=== PATIENT | female | born 1955 | race Caucasian/White ===

== ENCOUNTER → 2017-01-17 | Outpatient (CLI) | payer OTHER | LOC: CIMAGING 10:16 | PROVIDERS: ATTEND Obstetrics & Gynecology Gynecology | DX: N95.0 Postmenopausal bleeding (principal) | CPT/HCPCS: 76856-PO ==

== ENCOUNTER 2017-03-16 06:32 | Day surgery (SDC) | payer OTHER ==
[2017-03-16 06:58] VITALS: PULSE 76
[2017-03-16] MEDS ORDERED: LR 1,000 ML IV ONE ×2 (07:04→07:07)
[2017-03-16] MEDS ORDERED: MIDAZOLAM 2 MG/2 ML VIAL IVP ONE (07:43)
[2017-03-16] MEDS ORDERED: SCOPOLAMINE HYDROBROMIDE 1 MG/3 DAYS PATCH TD SCH (07:45)
[2017-03-16] MEDS ORDERED: fentaNYL 100 MCG/2 ML INJ IVP PRN (07:46)
[2017-03-16] MEDS ORDERED: MEPERIDINE 25 MG/ML SYR IVP PRN (07:46)
[2017-03-16] MEDS ORDERED: OXYCODONE/APAP 5/325 TAB PO PRN (07:46)
[2017-03-16] MEDS ORDERED: ACETAMINOPHEN 500 MG TAB PO PRN (07:46)
[2017-03-16] MEDS ORDERED: NALOXONE HCL 0.4 MG/ML INJ IVP PRN (07:46)
[2017-03-16] MEDS ORDERED: LR 500 ML IV PRN (07:46)
[2017-03-16] MEDS ORDERED: PROMETHAZINE HCL 25 MG/ML INJ IVP PRN (07:46)
[2017-03-16] MEDS ORDERED: ONDANSETRON 4 MG/2 ML VIAL IVP PRN (07:46)
[2017-03-16] MEDS ORDERED: HYDROCODONE/APAP 5/325 TAB PO PRN (07:46)
--- NOTE | 2017-03-16 07:46 | PDANEPAE ---
ANE Past Medical History - Cardiovascular History Hx Hypertension: No Hx Arrhythmias: No Hx Chest Pain: No Hx Coronary Artery / Peripheral Vascular Disease: No Hx CHF / Valvular Disease: No Hx Palpitations: No Cardiovascular History Comment: CHILDHOOD -MURMUR - Pulmonary History Hx COPD: No Hx Asthma/Reactive Airway Disease: No Hx Recent Upper Respiratory Infection: No Hx Oxygen in Use at Home: No Hx Sleep Apnea: Yes Sleep Apnea Screening Result - Last Documented: Positive - Neurologic History Hx Cerebrovascular Accident: No Hx Seizures: No Hx Dementia: No - Endocrine History Hx Diabetes: No Hypothyroid: No Hyperthyroid: No Obesity: no - Renal History Hx Renal Disorders: No - Liver History Hx Hepatic Disorders: No - Neurological & Psychiatric Hx Hx Neurological and Psychiatric Disorders: Yes Neurological / Psychiatric History Comment: ANXIETY - Cancer History Hx Cancer: No - Congenital Disorder History Hx Congenital Disorders: No - GI History GERD: mild Hx Gastrointestinal Disorders: Yes Gastrointestinal History Comment: ACID REFLUX - Other Health History Other Health History: NEG - Chronic Pain History Chronic Pain: No - Surgical History Prior Surgeries: MENISCISECTOMY MARINA. THUMB R. CYST LUMBAR ANE Review of Systems Review of Systems: - Exercise capacity METS (RN): 5 METS ANE Patient History - Allergies Allergies/Adverse Reactions: adhesive tape Allergy (Verified 03/02/17 14:08) Rash - Home Medications Home Medications: Aspirin 03/02/17 [Last Taken 03/09/17] Estrogens, Conjugated 03/02/17 [Last Taken 03/15/17] FLUoxetine 03/02/17 [Last Taken 03/15/17] Herbals/Supplements -Info Only 03/02/17 [Last Taken 03/09/17] Prevacid 03/02/17 [Last Taken 03/13/17] Progesterone 03/02/17 [Last Taken 03/15/17] Testosterone 03/02/17 [Last Taken 03/15/17] - NPO status NPO Since - Liquids (Date): 03/15/17 NPO Since - Liquids (Time): 22:00 NPO Since - Solids (Date): 03/15/17 NPO Since - Solids (Time): 18:00 - Anes Hx Anes Hx: post operative nausea - Smoking Hx Smoking Status: Current some day smoker - Alcohol Use Alcohol Use: Occasionally - Family Anes Hx Family Anes Hx: neg - N/A Family Hx Anesthesia Complications: NEG ANE Labs/Vital Signs - Vital Signs Blood Pressure: 142/92 Heart Rate: 76 Respiratory Rate: 16 O2 Sat (%): 94 Height: 164.47 cm Weight: 72.575 kg ANE Physical Exam - Airway Neck exam: FROM Mallampati Score: Class 2 Mouth exam: normal dental/mouth exam - Pulmonary Pulmonary: no respiratory distress, no rales or rhonchi, clear to auscultation - Cardiovascular Cardiovascular: regular rate and rhythym, no murmur, rub, or gallop - ASA Status ASA Status: II ANE Anesthesia Plan Anesthesia Plan: GA w LMA Total IV Anesthesia: No
[2017-03-16] MEDS ORDERED: fentaNYL 100 MCG/2 ML INJ ONE (08:09)
[2017-03-16] MEDS ORDERED: DEXAMETHASONE 4 MG/ML VIAL ONE (08:10)
[2017-03-16] MEDS ORDERED: LIDOCAINE 2% 5 ML SDV ONE (08:10)
[2017-03-16] MEDS ORDERED: PROPOFOL 200 MG/20 ML VIAL ONE (08:10)
[2017-03-16] MEDS ORDERED: ONDANSETRON 4 MG/2 ML VIAL ONE (08:10)
[2017-03-16] MEDS ORDERED: KETOROLAC 30 MG/1 ML SDV ONE (08:11)
[2017-03-16] MEDS ORDERED: RANITIDINE 50 MG/2 ML VIAL ONE (08:13)
--- NOTE | 2017-03-16 08:19 | PDHPUP ---
History & Physical Update H&P update statement: This history and physical update is based on an assessment of the patient which was completed after admission or registration (within 24 hours), but prior to the surgery/procedure.
--- NOTE | 2017-03-16 09:27 | POSTOPPROG ---
Post Op Note Date of Operation: 03/16/17 Surgeon: Shanti Jacob Anesthesiologist: Angelita Boone Anesthesia: LMA Pre-op Diagnosis: PMB, endometrial polyps Post-op Diagnosis: same Indication: PMB Procedure: H/S polypectomy Findings: cervical and endometrial polyps Inf/Abcess present in the surg proc area at time of surgery?: No EBL: Minimal
[2017-03-16 09:45] VITALS: TEMP 97.5
--- NOTE | 2017-03-16 09:58 | POSTANESTH ---
Post Anesthetic Evaluation Cardiovascular Status: Normal, Stable Respiratory Status: Normal, Stable Level of Consciousness/Mental Status: Can Participate in Eval Pain Control: Adequate, Prn Tx Ordered Nausea/Vomiting Control: Adequate, Prn Tx Ordered Complications Possibly Related to Anesthesia: None Noted
[2017-03-16 10:27] VITALS: BP 126/84; RESP 14; O2SAT 95
--- NOTE | 2017-03-16 12:01 | GOP ---
[f rep st] OPERATIVE REPORT DATE OF OPERATION: 03/16/2017 SURGEON: Shanti Jacob MD ANESTHESIA: General with LMA. ANESTHESIOLOGIST: Jewel Boone PREOPERATIVE DIAGNOSIS: 1. Postmenopausal bleeding. 2. Uterine and cervical polyps. POSTOPERATIVE DIAGNOSIS: 1. Postmenopausal bleeding. 2. Uterine and cervical polyps. PROCEDURE PERFORMED: Hysteroscopic polypectomy of the uterus and cervix. FINDINGS: There were several small polyp-looking areas inside the endometrium with normal tubal osti a and then there was a polyp-like fragment in the endocervix, but there was no true 1 cm polyp in the cervix. ESTIMATED BLOOD LOSS: Minimal. INDICATIONS: Patient is a 61-year-old who was referred by Dr. Do Hoskins, who has her on hormone replacement therapy and patient has had off and on bleeding over the past few years. Ultrasound done recently showed a thickened endometrial lining of 6 mm and a moderate-sized cervical polyp, and dominic ent desires hysteroscopic removal and evaluation. DESCRIPTION OF PROCEDURE: With informed consent signed, patient taken to operating room, placed unde r a general anesthesia without complication. Placed in low dorsal lithotomy position, and prepped an d draped in the usual sterile fashion. Cervix was dilated to 6 mm and hysteroscope placed using norm al saline as the filling medium. Findings as noted above. [employer] hysteroscopic m orcellator placed into the hysteroscope and resection of all tissue done, and this included like a pa rtial D and C. Once it was felt that all the polyp-like tissue was removed, the hysteroscope removed . Net fluid deficit was 40 cc and hemostasis noted. Patient was placed in supine position, awakened in the operating room, taken to recovery room in stable condition tolerating the procedure well. COMPLICATIONS: None. /[id number]/MODL
[2017-03-19] MEDS ORDERED: PATCH REMOVAL 1 EA PATCH TD SCH (07:43)
== END 2017-03-16 10:24 | disposition home or self-care (01) ==
LOC: FSGY 06:32
PROVIDERS: ATTEND Obstetrics & Gynecology Gynecology
PROC: 0UDB8ZX Extraction of Endometrium, Via Natural or Artificial Opening Endoscopic, Diagnostic (ICD-10-PCS; principal; 2017-03-16 08:00)
DX: N95.0 Postmenopausal bleeding (principal); N84.0 Polyp of corpus uteri; N84.1 Polyp of cervix uteri; K21.9 Gastro-esophageal reflux disease without esophagitis; G47.33 Obstructive sleep apnea (adult) (pediatric); Z79.890 Hormone replacement therapy
CPT/HCPCS: 58558; C1782; J1100; J1885; J2250; J2405; J2704; J2780; J3010